=== PATIENT | female | born 1990 | race Caucasian/White ===

== ENCOUNTER → 2018-06-03 | Outpatient (CLI) | payer BC ==
[2018-06-03 10:52] LABS: BASO # 0.1 (0.02-0.10); EOS # 0.1 (0.04-0.40); HEMATOCRIT 40.4 % (37.0-47.0); HEMOGLOBIN 13.4 g/dL (12.5-16.0); LYMPH# 2.9 (1.50-4.00); MEAN CELL VOLUME 88 fl (78-100); MEAN CORPUSCULAR HEMOGLOBIN 29 pg (27-31); MEAN CORPUSCULAR HGB CONC 33 g/dL (33-37); MEAN PLATELET VOLUME 11.2 fl (7.4-10.4); MONO # 0.6 (0.20-0.80); NEU # 7.6 (1.40-6.50); PLATELET COUNT 361 K/mm3 (130-400); RED BLOOD COUNT 4.57 M/mm3 (4.10-5.30); RED CELL DISTRIBUTION WIDTH 13.6 % (11.5-14.5); WHITE BLOOD COUNT 11.3 K/mm3 (4.8-10.8)
[2018-06-03 10:59] LABS: ALBUMIN 4.6 g/dL (3.5-5.0); CALCIUM 10.1 mg/dL (8.4-10.2); POTASSIUM 4.3 mmol/L (3.6-5.0); TOTAL BILIRUBIN 0.2 mg/dL (0.2-1.3); TOTAL PROTEIN 7.9 g/dL (6.3-8.2)
== END ==
LOC: LAB 09:59
PROVIDERS: Family Medicine
DX: Z01.419 Encounter for gynecological examination (general) (routine) without abnormal findings (principal); R53.83 Other fatigue

== ENCOUNTER → 2019-06-02 | Outpatient (CLI) | payer BC ==
[2019-06-02 08:29] LABS: EOS # 0.1 (0.04-0.40); EOS % 1.4 % (1.0-5.0); HEMATOCRIT 40.9 % (37.0-47.0); LYMPH# 1.9 (1.50-4.00); MEAN CELL VOLUME 89 fl (78-100); MEAN CORPUSCULAR HEMOGLOBIN 28 pg (27-31); MEAN CORPUSCULAR HGB CONC 32 g/dL (33-37); MONO # 0.6 (0.20-0.80); NEU # 6.2 (1.40-6.50); PLATELET COUNT 330 K/mm3 (130-400); RED BLOOD COUNT 4.58 M/mm3 (4.10-5.30); RED CELL DISTRIBUTION WIDTH 14.3 % (11.5-14.5); WHITE BLOOD COUNT 8.8 K/mm3 (4.8-10.8)
[2019-06-02 08:35] LABS: ALBUMIN 4.3 g/dL (3.5-5.0)
[2019-06-02 08:36] LABS: POTASSIUM 4.2 mmol/L (3.5-5.1)
[2019-06-02 08:37] LABS: CALCIUM 9.6 mg/dL (8.3-10.5)
[2019-06-02 08:38] LABS: TOTAL PROTEIN 7.5 g/dL (6.4-8.3)
[2019-06-02 08:40] LABS: TOTAL BILIRUBIN 0.3 mg/dL (0.2-1.2)
== END ==
LOC: LAB 08:13
PROVIDERS: Nurse Practitioner
DX: J02.9 Acute pharyngitis, unspecified (principal); R53.83 Other fatigue

== ENCOUNTER → 2020-11-15 | Outpatient (CLI) | payer BC ==
[2020-11-15 18:10] LABS: HEPATITIS C ANTIBODY Negative (Negative)
[2020-11-15 19:47] LABS: SYPHILIS AB SCREEN w REFLEX Negative (Negative)
== END ==
LOC: LAB 08:00
PROVIDERS: Family Medicine
DX: Z72.51 High risk heterosexual behavior (principal)

== ENCOUNTER → 2021-03-29 | Outpatient (CLI) | payer BC | LOC: LAB 12:32 | DX: J02.9 Acute pharyngitis, unspecified (principal); Z20.822 Contact with and (suspected) exposure to COVID-19 ==

== ENCOUNTER → 2021-05-23 | Outpatient (CLI) | payer BC ==
[2021-05-23 09:15] LABS: ALBUMIN 4.3 g/dL (3.5-5.0); POTASSIUM 4.2 mmol/L (3.5-5.1)
[2021-05-23 09:16] LABS: CALCIUM 10.1 mg/dL (8.3-10.5)
[2021-05-23 09:17] LABS: TOTAL PROTEIN 7.5 g/dL (6.4-8.3)
[2021-05-23 09:19] LABS: TOTAL BILIRUBIN 0.3 mg/dL (0.2-1.2)
== END ==
LOC: LAB 08:48
PROVIDERS: Family Medicine
DX: E66.9 Obesity, unspecified (principal)

== ENCOUNTER → 2021-06-22 | Outpatient (CLI) | payer BC | LOC: RAD 13:09 | DX: N63.21 Unspecified lump in the left breast, upper outer quadrant (principal) | CPT/HCPCS: 15989; 15990; A4648 ==

== ENCOUNTER → 2021-07-06 | Outpatient (CLI) | payer BC | LOC: MAMMO 07-05 13:00 | DX: N63.22 Unspecified lump in the left breast, upper inner quadrant (principal); C50.112 Malignant neoplasm of central portion of left female breast ==

== ENCOUNTER → 2021-07-27 | Outpatient (CLI) | payer BC ==
[2021-07-27 12:56] LABS: BASO # 0.08 K/mm3 (0.02-0.10); EOS # 0.15 K/mm3 (0.04-0.40); EOS % 1.5 % (1.0-5.0); HEMATOCRIT 39.5 % (37.0-47.0); HEMOGLOBIN 13.2 g/dL (12.5-16.0); LYMPH# 3.72 K/mm3 (1.50-4.00); MEAN CELL VOLUME 91 fl (78-100); MEAN CORPUSCULAR HEMOGLOBIN 31 pg (27-31); MEAN CORPUSCULAR HGB CONC 33 g/dL (33-37); MEAN PLATELET VOLUME 10.4 fl (7.4-10.4); MONO # 0.46 K/mm3 (0.20-0.80); NEU # 5.33 K/mm3 (1.40-6.50); PLATELET COUNT 363 K/mm3 (130-400); RED BLOOD COUNT 4.32 M/mm3 (4.10-5.30); RED CELL DISTRIBUTION WIDTH 12.9 % (11.5-14.5); WHITE BLOOD COUNT 9.8 K/mm3 (4.8-10.8)
[2021-07-27 14:01] LABS: ALBUMIN 4.5 g/dL (3.5-5.0); POTASSIUM 3.7 mmol/L (3.5-5.1)
[2021-07-27 14:02] LABS: CALCIUM 9.6 mg/dL (8.3-10.5)
[2021-07-27 14:05] LABS: TOTAL BILIRUBIN 0.3 mg/dL (0.2-1.2)
[2021-07-27 14:10] LABS: MAGNESIUM 2.02 mg/dL (1.60-2.60)
== END ==
LOC: RAD 12:32
PROVIDERS: Internal Medicine
DX: C50.112 Malignant neoplasm of central portion of left female breast (principal)

== ENCOUNTER → 2021-08-02 | Outpatient (CLI) | payer BC ==
[2021-08-02 08:52] LABS: HEMATOCRIT 36.5 % (37.0-47.0); HEMOGLOBIN 12.1 g/dL (12.5-16.0); MEAN PLATELET VOLUME 10.6 fl (7.4-10.4); RED BLOOD COUNT 3.96 M/mm3 (4.10-5.30); RED CELL DISTRIBUTION WIDTH 12.8 % (11.5-14.5); WHITE BLOOD COUNT 7.7 K/mm3 (4.8-10.8)
[2021-08-02 08:59] LABS: ALBUMIN 4.2 g/dL (3.5-5.0); POTASSIUM 3.5 mmol/L (3.5-5.1)
[2021-08-02 09:02] LABS: TOTAL PROTEIN 7.2 g/dL (6.4-8.3)
[2021-08-02 09:04] LABS: TOTAL BILIRUBIN 0.3 mg/dL (0.2-1.2)
[2021-08-02 09:09] LABS: MAGNESIUM 1.99 mg/dL (1.60-2.60)
== END ==
LOC: LAB 08:27
PROVIDERS: Internal Medicine
DX: C50.112 Malignant neoplasm of central portion of left female breast (principal)

== ENCOUNTER → 2021-08-09 | Outpatient (CLI) | payer BC ==
[~2021-08-09] MED LIST: DITROPAN XL 5MG5 M1 PO; PROCHLORPERAZIN10 M2 PO; TOPIRAMATE50 MG PO
[2021-08-09 08:52] LABS: BASO # 0.06 K/mm3 (0.02-0.10); EOS # 0.04 K/mm3 (0.04-0.40); EOS % 0.6 % (1.0-5.0); HEMATOCRIT 34.7 % (37.0-47.0); HEMOGLOBIN 11.4 g/dL (12.5-16.0); LYMPH# 3.18 K/mm3 (1.50-4.00); MEAN CELL VOLUME 92 fl (78-100); MEAN CORPUSCULAR HEMOGLOBIN 30 pg (27-31); MEAN CORPUSCULAR HGB CONC 33 g/dL (33-37); MEAN PLATELET VOLUME 10.6 fl (7.4-10.4); MONO # 0.19 K/mm3 (0.20-0.80); NEU # 3.24 K/mm3 (1.40-6.50); PLATELET COUNT 295 K/mm3 (130-400); RED BLOOD COUNT 3.78 M/mm3 (4.10-5.30); RED CELL DISTRIBUTION WIDTH 12.6 % (11.5-14.5); WHITE BLOOD COUNT 6.7 K/mm3 (4.8-10.8)
[2021-08-09 08:56] LABS: ALBUMIN 4.1 g/dL (3.5-5.0); POTASSIUM 3.3 mmol/L (3.5-5.1)
[2021-08-09 08:57] LABS: CALCIUM 9.1 mg/dL (8.3-10.5)
[2021-08-09 08:59] LABS: TOTAL PROTEIN 6.7 g/dL (6.4-8.3)
[2021-08-09 09:00] LABS: TOTAL BILIRUBIN 0.3 mg/dL (0.2-1.2)
[2021-08-09 09:05] LABS: MAGNESIUM 1.75 mg/dL (1.60-2.60)
== END ==
LOC: LAB 07:56
PROVIDERS: Internal Medicine
DX: C50.112 Malignant neoplasm of central portion of left female breast (principal)

== ENCOUNTER → 2021-08-16 | Outpatient (CLI) | payer BC ==
[2021-08-16 08:56] LABS: ALBUMIN 4.1 g/dL (3.5-5.0); POTASSIUM 3.3 mmol/L (3.5-5.1)
[2021-08-16 08:57] LABS: BASO # 0.04 K/mm3 (0.02-0.10); EOS # 0.03 K/mm3 (0.04-0.40); EOS % 0.5 % (1.0-5.0); HEMATOCRIT 34.7 % (37.0-47.0); HEMOGLOBIN 11.4 g/dL (12.5-16.0); LYMPH# 2.53 K/mm3 (1.50-4.00); MEAN CELL VOLUME 92 fl (78-100); MEAN CORPUSCULAR HEMOGLOBIN 30 pg (27-31); MEAN CORPUSCULAR HGB CONC 33 g/dL (33-37); MEAN PLATELET VOLUME 10.2 fl (7.4-10.4); MONO # 0.17 K/mm3 (0.20-0.80); NEU # 3.25 K/mm3 (1.40-6.50); PLATELET COUNT 282 K/mm3 (130-400); RED BLOOD COUNT 3.76 M/mm3 (4.10-5.30); RED CELL DISTRIBUTION WIDTH 13.2 % (11.5-14.5)
[2021-08-16 08:58] LABS: CALCIUM 9.1 mg/dL (8.3-10.5)
[2021-08-16 08:59] LABS: TOTAL PROTEIN 6.9 g/dL (6.4-8.3)
[2021-08-16 09:01] LABS: TOTAL BILIRUBIN 0.2 mg/dL (0.2-1.2)
[2021-08-16 09:05] LABS: MAGNESIUM 1.79 mg/dL (1.60-2.60)
== END ==
LOC: LAB 08:21
PROVIDERS: Internal Medicine
DX: C50.112 Malignant neoplasm of central portion of left female breast (principal)

== ENCOUNTER 2021-08-23 08:05 | Outpatient (RCR) | payer BC ==
[2021-08-09 08:20] VITALS: BP 125/84
[2021-08-16 08:05] VITALS: BP 125/89
[~2021-08-23] VITALS: Ht 172.7 cm; Wt 68.2 kg
== END 2021-08-25 19:00 | disposition home or self-care (01) ==
LOC: AMSURD 08:05
DX: C50.112 Malignant neoplasm of central portion of left female breast (principal)
CPT/HCPCS: J1644

== ENCOUNTER → 2021-08-23 | Outpatient (CLI) | payer BC ==
[2021-08-23 08:34] LABS: BASO # 0.04 K/mm3 (0.02-0.10); EOS # 0.02 K/mm3 (0.04-0.40); EOS % 0.4 % (1.0-5.0); HEMATOCRIT 33.8 % (37.0-47.0); LYMPH# 2.29 K/mm3 (1.50-4.00); MEAN CELL VOLUME 93 fl (78-100); MEAN CORPUSCULAR HEMOGLOBIN 30 pg (27-31); MEAN CORPUSCULAR HGB CONC 33 g/dL (33-37); MONO # 0.23 K/mm3 (0.20-0.80); NEU # 2.92 K/mm3 (1.40-6.50); PLATELET COUNT 265 K/mm3 (130-400); RED BLOOD COUNT 3.64 M/mm3 (4.10-5.30); RED CELL DISTRIBUTION WIDTH 13.9 % (11.5-14.5); WHITE BLOOD COUNT 5.5 K/mm3 (4.8-10.8)
[2021-08-23 09:38] LABS: ALBUMIN 3.9 g/dL (3.5-5.0); POTASSIUM 3.5 mmol/L (3.5-5.1)
[2021-08-23 09:39] LABS: CALCIUM 9.1 mg/dL (8.3-10.5)
[2021-08-23 09:40] LABS: TOTAL PROTEIN 6.9 g/dL (6.4-8.3)
[2021-08-23 09:42] LABS: TOTAL BILIRUBIN 0.3 mg/dL (0.2-1.2)
[2021-08-23 09:47] LABS: MAGNESIUM 1.83 mg/dL (1.60-2.60)
== END ==
LOC: LAB 08:06
PROVIDERS: Internal Medicine
DX: C50.919 Malignant neoplasm of unspecified site of unspecified female breast (principal)

== ENCOUNTER → 2021-08-30 | Outpatient (CLI) | payer BC ==
[2021-08-30 08:42] LABS: BASO # 0.04 K/mm3 (0.02-0.10); EOS # 0.04 K/mm3 (0.04-0.40); EOS % 0.5 % (1.0-5.0); HEMATOCRIT 35.6 % (37.0-47.0); HEMOGLOBIN 11.7 g/dL (12.5-16.0); LYMPH# 3.27 K/mm3 (1.50-4.00); MEAN CELL VOLUME 91 fl (78-100); MEAN CORPUSCULAR HEMOGLOBIN 30 pg (27-31); MEAN CORPUSCULAR HGB CONC 33 g/dL (33-37); MEAN PLATELET VOLUME 9.9 fl (7.4-10.4); MONO # 0.32 K/mm3 (0.20-0.80); NEU # 4.12 K/mm3 (1.40-6.50); PLATELET COUNT 221 K/mm3 (130-400); RED CELL DISTRIBUTION WIDTH 13.2 % (11.5-14.5); WHITE BLOOD COUNT 7.8 K/mm3 (4.8-10.8)
[2021-08-30 08:55] LABS: ALBUMIN 4.3 g/dL (3.5-5.0)
[2021-08-30 08:56] LABS: POTASSIUM 3.7 mmol/L (3.5-5.1)
[2021-08-30 08:57] LABS: CALCIUM 9.7 mg/dL (8.3-10.5)
[2021-08-30 08:58] LABS: TOTAL PROTEIN 8.2 g/dL (6.4-8.3)
[2021-08-30 09:00] LABS: TOTAL BILIRUBIN 0.4 mg/dL (0.2-1.2)
[2021-08-30 09:04] LABS: MAGNESIUM 1.76 mg/dL (1.60-2.60)
== END ==
LOC: LAB 08:15
PROVIDERS: Internal Medicine
DX: C50.112 Malignant neoplasm of central portion of left female breast (principal)

== ENCOUNTER 2021-09-06 08:04 | Outpatient (RCR) | payer BC | END 2021-09-25 | disposition home or self-care (01) | LOC: AMSURD | DX: C50.919 Malignant neoplasm of unspecified site of unspecified female breast (principal) | CPT/HCPCS: J1644 ==

== ENCOUNTER → 2021-09-06 | Outpatient (CLI) | payer BC ==
[2021-09-06 08:45] LABS: POTASSIUM 3.5 mmol/L (3.5-5.1)
[2021-09-06 08:46] LABS: CALCIUM 9.2 mg/dL (8.3-10.5)
[2021-09-06 08:47] LABS: TOTAL PROTEIN 6.9 g/dL (6.4-8.3)
[2021-09-06 08:54] LABS: MAGNESIUM 1.7 mg/dL (1.60-2.60)
[2021-09-06 09:01] LABS: TOTAL BILIRUBIN 0.1 mg/dL (0.2-1.2)
[2021-09-06 09:06] LABS: BASO # 0.04 K/mm3 (0.02-0.10); EOS # 0.04 K/mm3 (0.04-0.40); EOS % 0.7 % (1.0-5.0); HEMOGLOBIN 11.8 g/dL (12.5-16.0); LYMPH# 2.75 K/mm3 (1.50-4.00); MEAN CELL VOLUME 92 fl (78-100); MEAN CORPUSCULAR HEMOGLOBIN 30 pg (27-31); MEAN CORPUSCULAR HGB CONC 33 g/dL (33-37); MEAN PLATELET VOLUME 10.5 fl (7.4-10.4); MONO # 0.24 K/mm3 (0.20-0.80); NEU # 2.85 K/mm3 (1.40-6.50); PLATELET COUNT 229 K/mm3 (130-400); RED BLOOD COUNT 3.91 M/mm3 (4.10-5.30); RED CELL DISTRIBUTION WIDTH 14.4 % (11.5-14.5); WHITE BLOOD COUNT 5.9 K/mm3 (4.8-10.8)
== END ==
LOC: LAB 08:04
PROVIDERS: Internal Medicine
DX: C50.112 Malignant neoplasm of central portion of left female breast (principal)

== ENCOUNTER → 2021-09-13 | Outpatient (CLI) | payer BC ==
[2021-09-13 18:12] LABS: BASO # 0.05 K/mm3 (0.02-0.10); EOS # 0.06 K/mm3 (0.04-0.40); EOS % 0.7 % (1.0-5.0); HEMATOCRIT 34.9 % (37.0-47.0); HEMOGLOBIN 11.7 g/dL (12.5-16.0); LYMPH# 3.46 K/mm3 (1.50-4.00); MEAN CELL VOLUME 92 fl (78-100); MEAN CORPUSCULAR HEMOGLOBIN 31 pg (27-31); MEAN CORPUSCULAR HGB CONC 34 g/dL (33-37); MEAN PLATELET VOLUME 10.3 fl (7.4-10.4); MONO # 0.32 K/mm3 (0.20-0.80); NEU # 4.18 K/mm3 (1.40-6.50); PLATELET COUNT 252 K/mm3 (130-400); RED CELL DISTRIBUTION WIDTH 14.5 % (11.5-14.5); WHITE BLOOD COUNT 8.1 K/mm3 (4.8-10.8)
[2021-09-13 18:16] LABS: ALBUMIN 4.4 g/dL (3.5-5.0); POTASSIUM 3.7 mmol/L (3.5-5.1)
[2021-09-13 18:17] LABS: CALCIUM 9.7 mg/dL (8.3-10.5)
[2021-09-13 18:18] LABS: TOTAL PROTEIN 7.5 g/dL (6.4-8.3)
[2021-09-13 18:20] LABS: TOTAL BILIRUBIN 0.3 mg/dL (0.2-1.2)
[2021-09-13 18:25] LABS: MAGNESIUM 1.92 mg/dL (1.60-2.60)
== END ==
LOC: LAB 16:30
PROVIDERS: Internal Medicine
DX: C50.112 Malignant neoplasm of central portion of left female breast (principal)

== ENCOUNTER → 2021-09-20 | Outpatient (CLI) | payer BC ==
[2021-09-20 09:00] LABS: BASO # 0.03 K/mm3 (0.02-0.10); EOS # 0.01 K/mm3 (0.04-0.40); EOS % 0.2 % (1.0-5.0); HEMOGLOBIN 10.7 g/dL (12.5-16.0); LYMPH# 2.89 K/mm3 (1.50-4.00); MEAN CELL VOLUME 93 fl (78-100); MEAN CORPUSCULAR HEMOGLOBIN 31 pg (27-31); MEAN CORPUSCULAR HGB CONC 33 g/dL (33-37); MEAN PLATELET VOLUME 10.1 fl (7.4-10.4); MONO # 0.23 K/mm3 (0.20-0.80); NEU # 2.54 K/mm3 (1.40-6.50); PLATELET COUNT 240 K/mm3 (130-400); RED BLOOD COUNT 3.43 M/mm3 (4.10-5.30); RED CELL DISTRIBUTION WIDTH 14.4 % (11.5-14.5); WHITE BLOOD COUNT 5.7 K/mm3 (4.8-10.8)
[2021-09-20 09:04] LABS: POTASSIUM 3.8 mmol/L (3.5-5.1)
[2021-09-20 09:05] LABS: ALBUMIN 4.1 g/dL (3.5-5.0)
[2021-09-20 09:06] LABS: CALCIUM 9.7 mg/dL (8.3-10.5)
[2021-09-20 09:07] LABS: TOTAL PROTEIN 7.1 g/dL (6.4-8.3)
[2021-09-20 09:09] LABS: TOTAL BILIRUBIN 0.2 mg/dL (0.2-1.2)
[2021-09-20 09:15] LABS: MAGNESIUM 1.91 mg/dL (1.60-2.60)
== END ==
LOC: LAB 07:48
PROVIDERS: Internal Medicine
DX: C50.112 Malignant neoplasm of central portion of left female breast (principal)

== ENCOUNTER → 2021-09-27 | Outpatient (CLI) | payer BC ==
[2021-09-27 08:18] LABS: BASO # 0.02 K/mm3 (0.02-0.10); EOS # 0.02 K/mm3 (0.04-0.40); EOS % 0.4 % (1.0-5.0); HEMATOCRIT 33.1 % (37.0-47.0); HEMOGLOBIN 11.1 g/dL (12.5-16.0); LYMPH# 3.26 K/mm3 (1.50-4.00); MEAN CELL VOLUME 92 fl (78-100); MEAN CORPUSCULAR HEMOGLOBIN 31 pg (27-31); MEAN CORPUSCULAR HGB CONC 34 g/dL (33-37); MEAN PLATELET VOLUME 9.8 fl (7.4-10.4); MONO # 0.18 K/mm3 (0.20-0.80); NEU # 2.08 K/mm3 (1.40-6.50); PLATELET COUNT 308 K/mm3 (130-400); RED CELL DISTRIBUTION WIDTH 14.7 % (11.5-14.5); WHITE BLOOD COUNT 5.6 K/mm3 (4.8-10.8)
[2021-09-27 08:22] LABS: ALBUMIN 4.2 g/dL (3.5-5.0); POTASSIUM 3.4 mmol/L (3.5-5.1)
[2021-09-27 08:23] LABS: CALCIUM 9.4 mg/dL (8.3-10.5)
[2021-09-27 08:24] LABS: TOTAL PROTEIN 7.2 g/dL (6.4-8.3)
[2021-09-27 08:26] LABS: TOTAL BILIRUBIN 0.3 mg/dL (0.2-1.2)
[2021-09-27 08:31] LABS: MAGNESIUM 1.81 mg/dL (1.60-2.60)
== END ==
LOC: LAB 07:46
PROVIDERS: Internal Medicine
DX: C50.112 Malignant neoplasm of central portion of left female breast (principal)

== ENCOUNTER → 2021-10-03 | Outpatient (CLI) | payer BC | LOC: RAD 14:30 → VAS 14:36 | DX: C50.112 Malignant neoplasm of central portion of left female breast (principal) ==

== ENCOUNTER → 2021-10-04 | Outpatient (CLI) | payer BC ==
[2021-10-04 09:04] LABS: BASO # 0.02 K/mm3 (0.02-0.10); EOS # 0.06 K/mm3 (0.04-0.40); EOS % 1.4 % (1.0-5.0); HEMATOCRIT 33.1 % (37.0-47.0); HEMOGLOBIN 11.2 g/dL (12.5-16.0); LYMPH# 1.96 K/mm3 (1.50-4.00); MEAN CELL VOLUME 93 fl (78-100); MEAN CORPUSCULAR HEMOGLOBIN 32 pg (27-31); MEAN CORPUSCULAR HGB CONC 34 g/dL (33-37); MEAN PLATELET VOLUME 9.8 fl (7.4-10.4); MONO # 0.22 K/mm3 (0.20-0.80); PLATELET COUNT 215 K/mm3 (130-400); RED BLOOD COUNT 3.55 M/mm3 (4.10-5.30); RED CELL DISTRIBUTION WIDTH 15.4 % (11.5-14.5); WHITE BLOOD COUNT 4.4 K/mm3 (4.8-10.8)
[2021-10-04 09:05] LABS: ALBUMIN 4.1 g/dL (3.5-5.0); POTASSIUM 3.5 mmol/L (3.5-5.1)
[2021-10-04 09:07] LABS: CALCIUM 9.5 mg/dL (8.3-10.5)
[2021-10-04 09:08] LABS: TOTAL PROTEIN 7.2 g/dL (6.4-8.3)
[2021-10-04 09:10] LABS: TOTAL BILIRUBIN 0.3 mg/dL (0.2-1.2)
[2021-10-04 09:14] LABS: MAGNESIUM 1.79 mg/dL (1.60-2.60)
== END ==
LOC: LAB 08:28
PROVIDERS: Internal Medicine
DX: C50.112 Malignant neoplasm of central portion of left female breast (principal)

== ENCOUNTER → 2021-10-05 | Outpatient (CLI) | payer BC | LOC: RAD 07:19 | DX: M25.562 Pain in left knee (principal) ==

== ENCOUNTER → 2021-10-11 | Outpatient (CLI) | payer BC ==
[2021-10-11 08:24] LABS: BASO # 0.04 K/mm3 (0.02-0.10); EOS # 0.02 K/mm3 (0.04-0.40); EOS % 0.3 % (1.0-5.0); HEMATOCRIT 31.7 % (37.0-47.0); HEMOGLOBIN 10.9 g/dL (12.5-16.0); LYMPH# 3.78 K/mm3 (1.50-4.00); MEAN CELL VOLUME 92 fl (78-100); MEAN CORPUSCULAR HEMOGLOBIN 32 pg (27-31); MEAN CORPUSCULAR HGB CONC 34 g/dL (33-37); MEAN PLATELET VOLUME 9.2 fl (7.4-10.4); MONO # 0.18 K/mm3 (0.20-0.80); NEU # 2.65 K/mm3 (1.40-6.50); PLATELET COUNT 256 K/mm3 (130-400); RED BLOOD COUNT 3.45 M/mm3 (4.10-5.30); RED CELL DISTRIBUTION WIDTH 15.2 % (11.5-14.5); WHITE BLOOD COUNT 6.7 K/mm3 (4.8-10.8)
[2021-10-11 09:09] LABS: ALBUMIN 4.2 g/dL (3.5-5.0); POTASSIUM 3.5 mmol/L (3.5-5.1)
[2021-10-11 09:11] LABS: CALCIUM 9.7 mg/dL (8.3-10.5)
[2021-10-11 09:12] LABS: TOTAL PROTEIN 7.3 g/dL (6.4-8.3)
[2021-10-11 09:14] LABS: TOTAL BILIRUBIN 0.2 mg/dL (0.2-1.2)
[2021-10-11 09:18] LABS: MAGNESIUM 1.7 mg/dL (1.60-2.60)
== END ==
LOC: LAB 08:03
PROVIDERS: Internal Medicine
DX: C50.112 Malignant neoplasm of central portion of left female breast (principal)

== ENCOUNTER → 2021-10-19 | Outpatient (CLI) | payer BC ==
[2021-10-19 08:13] LABS: BASO # 0.02 K/mm3 (0.02-0.10); EOS # 0.03 K/mm3 (0.04-0.40); EOS % 0.6 % (1.0-5.0); HEMOGLOBIN 11.3 g/dL (12.5-16.0); LYMPH# 2.04 K/mm3 (1.50-4.00); MEAN CELL VOLUME 94 fl (78-100); MEAN CORPUSCULAR HEMOGLOBIN 32 pg (27-31); MEAN CORPUSCULAR HGB CONC 34 g/dL (33-37); MEAN PLATELET VOLUME 9.3 fl (7.4-10.4); MONO # 0.17 K/mm3 (0.20-0.80); NEU # 2.71 K/mm3 (1.40-6.50); PLATELET COUNT 313 K/mm3 (130-400); RED BLOOD COUNT 3.53 M/mm3 (4.10-5.30); RED CELL DISTRIBUTION WIDTH 15.6 % (11.5-14.5)
[2021-10-19 08:36] LABS: ALBUMIN 4.2 g/dL (3.5-5.0); POTASSIUM 3.7 mmol/L (3.5-5.1)
[2021-10-19 08:37] LABS: CALCIUM 9.9 mg/dL (8.3-10.5)
[2021-10-19 08:39] LABS: TOTAL PROTEIN 7.5 g/dL (6.4-8.3)
[2021-10-19 08:40] LABS: TOTAL BILIRUBIN 0.3 mg/dL (0.2-1.2)
[2021-10-19 08:45] LABS: MAGNESIUM 1.77 mg/dL (1.60-2.60)
== END ==
LOC: LAB 07:58
PROVIDERS: Internal Medicine
DX: C50.112 Malignant neoplasm of central portion of left female breast (principal); Z17.1 Estrogen receptor negative status [ER-]

== ENCOUNTER → 2021-10-25 | Outpatient (CLI) | payer BC ==
[2021-10-25 07:36] LABS: BASO # 0.02 K/mm3 (0.02-0.10); EOS # 0.01 K/mm3 (0.04-0.40); EOS % 0.1 % (1.0-5.0); HEMATOCRIT 32.3 % (37.0-47.0); HEMOGLOBIN 10.8 g/dL (12.5-16.0); LYMPH# 3.25 K/mm3 (1.50-4.00); MEAN CELL VOLUME 96 fl (78-100); MEAN CORPUSCULAR HEMOGLOBIN 32 pg (27-31); MEAN CORPUSCULAR HGB CONC 33 g/dL (33-37); MEAN PLATELET VOLUME 9.6 fl (7.4-10.4); MONO # 0.47 K/mm3 (0.20-0.80); NEU # 3.05 K/mm3 (1.40-6.50); PLATELET COUNT 216 K/mm3 (130-400); RED BLOOD COUNT 3.37 M/mm3 (4.10-5.30); RED CELL DISTRIBUTION WIDTH 16.3 % (11.5-14.5); WHITE BLOOD COUNT 6.8 K/mm3 (4.8-10.8)
[2021-10-25 07:50] LABS: ALBUMIN 4.1 g/dL (3.5-5.0); POTASSIUM 3.7 mmol/L (3.5-5.1)
[2021-10-25 07:51] LABS: CALCIUM 9.4 mg/dL (8.3-10.5)
[2021-10-25 07:54] LABS: TOTAL BILIRUBIN 0.3 mg/dL (0.2-1.2)
[2021-10-25 07:59] LABS: MAGNESIUM 1.9 mg/dL (1.60-2.60)
== END ==
LOC: LAB 06:57
PROVIDERS: Internal Medicine
DX: C50.112 Malignant neoplasm of central portion of left female breast (principal)

== ENCOUNTER → 2021-11-01 | Outpatient (CLI) | payer BC ==
[2021-11-01 09:00] LABS: ALBUMIN 4.1 g/dL (3.5-5.0)
[2021-11-01 09:01] LABS: POTASSIUM 3.7 mmol/L (3.5-5.1)
[2021-11-01 09:02] LABS: CALCIUM 9.9 mg/dL (8.3-10.5)
[2021-11-01 09:03] LABS: TOTAL PROTEIN 7.2 g/dL (6.4-8.3)
[2021-11-01 09:05] LABS: TOTAL BILIRUBIN 0.4 mg/dL (0.2-1.2)
[2021-11-01 09:09] LABS: MAGNESIUM 1.89 mg/dL (1.60-2.60)
[2021-11-01 09:12] LABS: HEMATOCRIT 28.1 % (37.0-47.0); HEMOGLOBIN 9.5 g/dL (12.5-16.0); MEAN CELL VOLUME 95 fl (78-100); MEAN CORPUSCULAR HEMOGLOBIN 32 pg (27-31); MEAN CORPUSCULAR HGB CONC 34 g/dL (33-37); MEAN PLATELET VOLUME 9.8 fl (7.4-10.4); PLATELET COUNT 167 K/mm3 (130-400); RED BLOOD COUNT 2.95 M/mm3 (4.10-5.30); RED CELL DISTRIBUTION WIDTH 14.6 % (11.5-14.5); WHITE BLOOD COUNT 2.9 K/mm3 (4.8-10.8)
[2021-11-01 11:07] LABS: LYMPHOCYTE 63 % (20-51); MONOCYTE 3 % (3-10); NEUTROPHILS 32 % (42-75)
== END ==
LOC: LAB 08:09
PROVIDERS: Internal Medicine
DX: C50.112 Malignant neoplasm of central portion of left female breast (principal)

== ENCOUNTER → 2021-11-08 | Outpatient (CLI) | payer BC ==
[2021-11-08 09:43] LABS: BASO # 0.02 K/mm3 (0.02-0.10); EOS # 0.02 K/mm3 (0.04-0.40); EOS % 0.6 % (1.0-5.0); HEMATOCRIT 29.8 % (37.0-47.0); HEMOGLOBIN 10.3 g/dL (12.5-16.0); LYMPH# 2.01 K/mm3 (1.50-4.00); MEAN CELL VOLUME 95 fl (78-100); MEAN CORPUSCULAR HEMOGLOBIN 33 pg (27-31); MEAN CORPUSCULAR HGB CONC 35 g/dL (33-37); MEAN PLATELET VOLUME 9.1 fl (7.4-10.4); MONO # 0.64 K/mm3 (0.20-0.80); NEU # 0.63 K/mm3 (1.40-6.50); PLATELET COUNT 488 K/mm3 (130-400); RED BLOOD COUNT 3.14 M/mm3 (4.10-5.30); WHITE BLOOD COUNT 3.5 K/mm3 (4.8-10.8)
[2021-11-08 09:49] LABS: ALBUMIN 4.1 g/dL (3.5-5.0); POTASSIUM 3.6 mmol/L (3.5-5.1)
[2021-11-08 09:50] LABS: CALCIUM 9.3 mg/dL (8.3-10.5)
[2021-11-08 09:58] LABS: MAGNESIUM 1.96 mg/dL (1.60-2.60)
[2021-11-08 10:07] LABS: TOTAL BILIRUBIN 0.1 mg/dL (0.2-1.2)
== END ==
LOC: LAB 08:55
PROVIDERS: Internal Medicine
DX: C50.112 Malignant neoplasm of central portion of left female breast (principal)

== ENCOUNTER → 2022-01-01 | Outpatient (CLI) | payer BC | LOC: LAB 13:06 | DX: J02.9 Acute pharyngitis, unspecified (principal) ==

== ENCOUNTER → 2022-01-02 | Outpatient (CLI) | payer BC ==
[2022-01-02 16:45] LABS: BASO # 0.03 K/mm3 (0.02-0.10); EOS # 0.03 K/mm3 (0.04-0.40); HEMATOCRIT 24.6 % (37.0-47.0); HEMOGLOBIN 8.3 g/dL (12.5-16.0); LYMPH# 0.64 K/mm3 (1.50-4.00); MEAN CELL VOLUME 94 fl (78-100); MEAN CORPUSCULAR HEMOGLOBIN 32 pg (27-31); MEAN CORPUSCULAR HGB CONC 34 g/dL (33-37); MEAN PLATELET VOLUME 9.4 fl (7.4-10.4); MONO # 0.17 K/mm3 (0.20-0.80); NEU # 2.11 K/mm3 (1.40-6.50); PLATELET COUNT 206 K/mm3 (130-400); RED BLOOD COUNT 2.62 M/mm3 (4.10-5.30); RED CELL DISTRIBUTION WIDTH 13.1 % (11.5-14.5)
[2022-01-02 16:53] LABS: ALBUMIN 3.9 g/dL (3.5-5.0); POTASSIUM 3.7 mmol/L (3.5-5.1)
[2022-01-02 16:55] LABS: CALCIUM 9.6 mg/dL (8.3-10.5)
[2022-01-02 16:56] LABS: TOTAL PROTEIN 7.1 g/dL (6.4-8.3)
[2022-01-02 16:58] LABS: TOTAL BILIRUBIN 0.2 mg/dL (0.2-1.2)
[2022-01-02 17:02] LABS: MAGNESIUM 1.82 mg/dL (1.60-2.60)
== END ==
LOC: LAB 09:55 → RAD 09:55
PROVIDERS: Internal Medicine
DX: R06.02 Shortness of breath (principal); R07.9 Chest pain, unspecified; Z85.3 Personal history of malignant neoplasm of breast
CPT/HCPCS: Q9967

== ENCOUNTER → 2022-03-16 | Outpatient (CLI) | payer BC ==
[2022-03-16 08:11] LABS: BASO # 0.07 K/mm3 (0.02-0.10); EOS # 0.29 K/mm3 (0.04-0.40); EOS % 6.1 % (1.0-5.0); HEMATOCRIT 35.7 % (37.0-47.0); HEMOGLOBIN 11.4 g/dL (12.5-16.0); MEAN CELL VOLUME 91 fl (78-100); MEAN CORPUSCULAR HEMOGLOBIN 29 pg (27-31); MEAN CORPUSCULAR HGB CONC 32 g/dL (33-37); MEAN PLATELET VOLUME 10.1 fl (7.4-10.4); MONO # 0.42 K/mm3 (0.20-0.80); NEU # 2.45 K/mm3 (1.40-6.50); PLATELET COUNT 304 K/mm3 (130-400); RED BLOOD COUNT 3.93 M/mm3 (4.10-5.30); RED CELL DISTRIBUTION WIDTH 13.1 % (11.5-14.5); WHITE BLOOD COUNT 4.7 K/mm3 (4.8-10.8)
[2022-03-16 08:14] LABS: ALBUMIN 4.5 g/dL (3.5-5.0)
[2022-03-16 08:16] LABS: CALCIUM 10.5 mg/dL (8.3-10.5)
[2022-03-16 08:17] LABS: TOTAL PROTEIN 8.2 g/dL (6.4-8.3)
[2022-03-16 08:19] LABS: TOTAL BILIRUBIN 0.2 mg/dL (0.2-1.2)
== END ==
LOC: LAB 07:27
PROVIDERS: Internal Medicine
DX: C50.112 Malignant neoplasm of central portion of left female breast (principal)

== ENCOUNTER → 2022-04-06 | Outpatient (CLI) | payer BC ==
[2022-04-06 10:29] LABS: BASO # 0.06 K/mm3 (0.02-0.10); HEMATOCRIT 33.6 % (37.0-47.0); HEMOGLOBIN 10.8 g/dL (12.5-16.0); LYMPH# 1.45 K/mm3 (1.50-4.00); MEAN CELL VOLUME 89 fl (78-100); MEAN CORPUSCULAR HEMOGLOBIN 29 pg (27-31); MEAN CORPUSCULAR HGB CONC 32 g/dL (33-37); MEAN PLATELET VOLUME 10.7 fl (7.4-10.4); MONO # 0.44 K/mm3 (0.20-0.80); NEU # 2.78 K/mm3 (1.40-6.50); PLATELET COUNT 276 K/mm3 (130-400); RED BLOOD COUNT 3.76 M/mm3 (4.10-5.30); RED CELL DISTRIBUTION WIDTH 13.2 % (11.5-14.5)
[2022-04-06 10:31] LABS: ALBUMIN 4.2 g/dL (3.5-5.0); POTASSIUM 4.1 mmol/L (3.5-5.1)
[2022-04-06 10:33] LABS: CALCIUM 9.6 mg/dL (8.3-10.5)
[2022-04-06 10:34] LABS: TOTAL PROTEIN 7.7 g/dL (6.4-8.3)
[2022-04-06 10:36] LABS: TOTAL BILIRUBIN 0.2 mg/dL (0.2-1.2)
== END ==
LOC: LAB 07:33
PROVIDERS: Internal Medicine
DX: C50.112 Malignant neoplasm of central portion of left female breast (principal)

== ENCOUNTER → 2022-04-19 | Outpatient (CLI) | payer BC | LOC: RAD 07:57 | DX: C50.112 Malignant neoplasm of central portion of left female breast (principal); R51.9 Headache, unspecified | CPT/HCPCS: A9585 ==

== ENCOUNTER → 2022-04-27 | Outpatient (CLI) | payer BC ==
[2022-04-27 08:00] LABS: BASO # 0.06 K/mm3 (0.02-0.10); EOS # 0.18 K/mm3 (0.04-0.40); HEMATOCRIT 35.3 % (37.0-47.0); HEMOGLOBIN 11.7 g/dL (12.5-16.0); LYMPH# 1.42 K/mm3 (1.50-4.00); MEAN CELL VOLUME 86 fl (78-100); MEAN CORPUSCULAR HEMOGLOBIN 29 pg (27-31); MEAN CORPUSCULAR HGB CONC 33 g/dL (33-37); MONO # 0.35 K/mm3 (0.20-0.80); NEU # 2.49 K/mm3 (1.40-6.50); PLATELET COUNT 268 K/mm3 (130-400); RED CELL DISTRIBUTION WIDTH 13.1 % (11.5-14.5); WHITE BLOOD COUNT 4.5 K/mm3 (4.8-10.8)
[2022-04-27 08:14] LABS: ALBUMIN 4.3 g/dL (3.5-5.0); POTASSIUM 3.7 mmol/L (3.5-5.1)
[2022-04-27 08:16] LABS: CALCIUM 9.7 mg/dL (8.3-10.5)
[2022-04-27 08:17] LABS: TOTAL PROTEIN 7.6 g/dL (6.4-8.3)
[2022-04-27 08:19] LABS: TOTAL BILIRUBIN 0.2 mg/dL (0.2-1.2)
== END ==
LOC: LAB 07:39
PROVIDERS: Family Medicine
DX: C50.112 Malignant neoplasm of central portion of left female breast (principal); Z00.00 Encounter for general adult medical examination without abnormal findings; N92.1 Excessive and frequent menstruation with irregular cycle; F41.9 Anxiety disorder, unspecified; G43.909 Migraine, unspecified, not intractable, without status migrainosus; E78.5 Hyperlipidemia, unspecified; E66.9 Obesity, unspecified; N39.46 Mixed incontinence; G47.09 Other insomnia

== ENCOUNTER → 2022-05-08 | Outpatient (CLI) | payer BC ==
[2022-05-08 08:27] LABS: BASO # 0.07 K/mm3 (0.02-0.10); EOS # 0.14 K/mm3 (0.04-0.40); HEMATOCRIT 36.2 % (37.0-47.0); HEMOGLOBIN 11.9 g/dL (12.5-16.0); LYMPH# 1.58 K/mm3 (1.50-4.00); MEAN CELL VOLUME 87 fl (78-100); MEAN CORPUSCULAR HEMOGLOBIN 29 pg (27-31); MEAN CORPUSCULAR HGB CONC 33 g/dL (33-37); MEAN PLATELET VOLUME 10.3 fl (7.4-10.4); MONO # 0.36 K/mm3 (0.20-0.80); NEU # 2.58 K/mm3 (1.40-6.50); PLATELET COUNT 234 K/mm3 (130-400); RED BLOOD COUNT 4.14 M/mm3 (4.10-5.30); RED CELL DISTRIBUTION WIDTH 13.6 % (11.5-14.5); WHITE BLOOD COUNT 4.7 K/mm3 (4.8-10.8)
[2022-05-08 08:36] LABS: ALBUMIN 4.6 g/dL (3.5-5.0); POTASSIUM 4.8 mmol/L (3.5-5.1)
[2022-05-08 08:37] LABS: CALCIUM 10.6 mg/dL (8.3-10.5)
[2022-05-08 08:38] LABS: TOTAL PROTEIN 7.9 g/dL (6.4-8.3)
[2022-05-08 08:40] LABS: TOTAL BILIRUBIN 0.3 mg/dL (0.2-1.2)
== END ==
LOC: LAB 08:02
PROVIDERS: Internal Medicine
DX: C50.112 Malignant neoplasm of central portion of left female breast (principal)

== ENCOUNTER → 2022-05-18 | Outpatient (CLI) | payer BC ==
[2022-05-18 11:55] LABS: BASO # 0.07 K/mm3 (0.02-0.10); EOS # 0.13 K/mm3 (0.04-0.40); EOS % 2.8 % (1.0-5.0); HEMATOCRIT 36.4 % (37.0-47.0); LYMPH# 1.46 K/mm3 (1.50-4.00); MEAN CELL VOLUME 87 fl (78-100); MEAN CORPUSCULAR HEMOGLOBIN 29 pg (27-31); MEAN CORPUSCULAR HGB CONC 33 g/dL (33-37); MEAN PLATELET VOLUME 10.6 fl (7.4-10.4); NEU # 2.72 K/mm3 (1.40-6.50); PLATELET COUNT 242 K/mm3 (130-400); RED BLOOD COUNT 4.17 M/mm3 (4.10-5.30); WHITE BLOOD COUNT 4.7 K/mm3 (4.8-10.8)
[2022-05-18 11:58] LABS: ALBUMIN 4.4 g/dL (3.5-5.0); POTASSIUM 3.7 mmol/L (3.5-5.1)
[2022-05-18 11:59] LABS: CALCIUM 9.8 mg/dL (8.3-10.5)
[2022-05-18 12:01] LABS: TOTAL PROTEIN 7.4 g/dL (6.4-8.3)
[2022-05-18 12:02] LABS: TOTAL BILIRUBIN 0.2 mg/dL (0.2-1.2)
== END ==
LOC: LAB 11:18
PROVIDERS: Family Medicine
DX: Z51.11 Encounter for antineoplastic chemotherapy (principal); K21.00 Gastro-esophageal reflux disease with esophagitis, without bleeding; F41.9 Anxiety disorder, unspecified; D05.12 Intraductal carcinoma in situ of left breast; N92.1 Excessive and frequent menstruation with irregular cycle; G43.909 Migraine, unspecified, not intractable, without status migrainosus; N39.46 Mixed incontinence; E66.9 Obesity, unspecified; G47.09 Other insomnia

== ENCOUNTER → 2022-06-29 | Outpatient (CLI) | payer BC ==
[2022-06-29 17:35] LABS: BASO # 0.05 K/mm3 (0.02-0.10); EOS # 0.13 K/mm3 (0.04-0.40); EOS % 2.2 % (1.0-5.0); HEMATOCRIT 33.5 % (37.0-47.0); HEMOGLOBIN 11.1 g/dL (12.5-16.0); LYMPH# 1.96 K/mm3 (1.50-4.00); MEAN CELL VOLUME 88 fl (78-100); MEAN CORPUSCULAR HEMOGLOBIN 29 pg (27-31); MEAN CORPUSCULAR HGB CONC 33 g/dL (33-37); MEAN PLATELET VOLUME 10.2 fl (7.4-10.4); NEU # 3.48 K/mm3 (1.40-6.50); PLATELET COUNT 268 K/mm3 (130-400); RED BLOOD COUNT 3.83 M/mm3 (4.10-5.30); RED CELL DISTRIBUTION WIDTH 14.2 % (11.5-14.5); WHITE BLOOD COUNT 5.9 K/mm3 (4.8-10.8)
[2022-06-29 17:46] LABS: ALBUMIN 4.2 g/dL (3.5-5.0)
[2022-06-29 17:47] LABS: CALCIUM 9.5 mg/dL (8.3-10.5)
[2022-06-29 17:48] LABS: TOTAL PROTEIN 7.3 g/dL (6.4-8.3)
[2022-06-29 17:50] LABS: TOTAL BILIRUBIN 0.2 mg/dL (0.2-1.2)
== END ==
LOC: LAB 17:08
PROVIDERS: Family Medicine
DX: Z51.11 Encounter for antineoplastic chemotherapy (principal); D05.12 Intraductal carcinoma in situ of left breast; N92.1 Excessive and frequent menstruation with irregular cycle; F41.9 Anxiety disorder, unspecified; G43.909 Migraine, unspecified, not intractable, without status migrainosus; N39.46 Mixed incontinence; E66.9 Obesity, unspecified; G47.09 Other insomnia; K21.00 Gastro-esophageal reflux disease with esophagitis, without bleeding

== ENCOUNTER → 2022-10-09 | Outpatient (CLI) | payer OTHER ==
[2022-10-09 10:36] LABS: BASO # 0.06 K/mm3 (0.02-0.10); EOS # 0.13 K/mm3 (0.04-0.40); EOS % 2.7 % (1.0-5.0); HEMATOCRIT 34.7 % (37.0-47.0); HEMOGLOBIN 11.2 g/dL (12.5-16.0); LYMPH# 1.62 K/mm3 (1.50-4.00); MEAN CELL VOLUME 90 fl (78-100); MEAN CORPUSCULAR HEMOGLOBIN 29 pg (27-31); MEAN CORPUSCULAR HGB CONC 32 g/dL (33-37); MEAN PLATELET VOLUME 10.3 fl (7.4-10.4); MONO # 0.28 K/mm3 (0.20-0.80); NEU # 2.81 K/mm3 (1.40-6.50); PLATELET COUNT 236 K/mm3 (130-400); RED BLOOD COUNT 3.86 M/mm3 (4.10-5.30); WHITE BLOOD COUNT 4.9 K/mm3 (4.8-10.8)
[2022-10-09 10:37] LABS: ALBUMIN 4.2 g/dL (3.5-5.0); POTASSIUM 3.9 mmol/L (3.5-5.1)
[2022-10-09 10:39] LABS: CALCIUM 9.4 mg/dL (8.3-10.5)
[2022-10-09 10:42] LABS: TOTAL BILIRUBIN 0.2 mg/dL (0.2-1.2)
== END ==
LOC: LAB 10:05
PROVIDERS: Family Medicine
DX: Z51.11 Encounter for antineoplastic chemotherapy (principal); F41.9 Anxiety disorder, unspecified; D05.12 Intraductal carcinoma in situ of left breast; N92.1 Excessive and frequent menstruation with irregular cycle; G43.909 Migraine, unspecified, not intractable, without status migrainosus; N39.46 Mixed incontinence; E66.9 Obesity, unspecified; G47.09 Other insomnia; K21.00 Gastro-esophageal reflux disease with esophagitis, without bleeding